=== PATIENT | male | born 1975 | race American Indian/Alaskan Native ===

== ENCOUNTER 2021-09-01 11:13 | Emergency (ER) | payer SELFPAY ==
[2021-09-01 11:44] VITALS: BP 100/60
--- NOTE | 2021-09-01 11:48 | Emergency Department Report ---
Chief Complaint: Abdominal Pain Stated Complaint: ABDOMINAL PAIN Time Seen by Provider: 09/01/21 11:46 - HPI History of Present Illness: felt bad last night so called off work job told him he needs work note so he comes to ER - ROS Review of Systems: no complaints - Exam Vital Signs: Vital Signs 09/01/21 11:42 Temperature 98.3 F Pulse Rate 107 H Respiratory 16 Rate Blood Pressure 100/60 [Left] O2 Sat by Pulse 100 Oximetry HR 90 on exam no fever no chills Physical Exam: alert oriented s1s2 lungs cta abd snt nad MSE screening note: Focused history and physical exam performed. Due to findings the following was ordered: Here for work note ED Disposition for MSE Clinical Impression: Abdominal pain Disposition: 01 HOME / SELF CARE / HOMELESS Is pt being admited?: No Does the pt Need Aspirin: No Condition: Stable Referrals: WEN SRIVASTAVA MD [Staff Physician] - 3-5 Days Forms: Work/School Release Form(ED) Time of Disposition: 11:47
== END 2021-09-01 16:20 | disposition home or self-care (01) ==
LOC: EDBD → ED 11:13
DX: R10.9 Unspecified abdominal pain (principal)
CPT/HCPCS: 99282

== ENCOUNTER 2022-02-03 13:07 | Emergency (ER) | payer SELFPAY ==
[2022-02-03 14:07] VITALS: BP 99/69
--- NOTE | 2022-02-03 16:24 | Emergency Department Report ---
ED Abdominal Pain HPI - General Chief Complaint: Abdominal Pain Stated Complaint: STOMACH PAIN Time Seen by Provider: 02/03/22 15:03 Source: patient Mode of arrival: Ambulatory Limitations: No Limitations - History of Present Illness Initial Comments: 46-year-old male with no significant past medical history reports to the ER with complaints of abdominal cramping with nausea intermittent vomiting and intermittent diarrhea for about 1 week. Patient reports that the nausea diarrhea has improved as well as the vomiting. Patient still reports he is watson ving abdominal cramping. Patient reports no other acute symptoms at this time. Patient denies any suspicious food intake as well as no exposure to any sick contacts or with people with similar symptoms. Patient reports taking nothing for his symptoms. Patient reports not having any prior episodes. Patient reports the cramping to be dull about 5 out of 10 pain. - Related Data Allergies Allergy/AdvReac Type Severity Reaction Status Date / Time No Known Allergies Allergy Verified 09/01/21 11:39 ED Review of Systems ROS: Stated complaint: STOMACH PAIN Other details as noted in HPI Comment: All other systems reviewed and negative Gastrointestinal: abdominal pain, nausea, vomiting, diarrhea. denies: hematemesis, melena, hematochezia ED Past Medical Hx - Past Medical History Previous Medical History?: No ED Physical Exam - General Limitations: No Limitations General appearance: alert, in no apparent distress - Head Head exam: Present: normocephalic - Eye Eye exam: Absent: conjunctival injection - Respiratory Respiratory exam: Absent: respiratory distress - Cardiovascular Cardiovascular Exam: Present: regular rate - GI/Abdominal GI/Abdominal exam: Absent: distended - Neurological Exam Neurological exam: Present: alert, altered, oriented X3, normal gait - Skin Skin exam: Present: warm, dry, intact ED Course Vital Signs 02/03/22 14:05 Temperature 97.6 F Pulse Rate 83 Respiratory 18 Rate Blood Pressure 99/69 [Right] O2 Sat by Pulse 97 Oximetry ED Medical Decision Making - Medical Decision Making During initial assessment of this patient as this provider was collecting a background of the patient's reason for being in the ER as well as asking more questions about his abdominal symptoms. Patient reports that he is truly here for work excuse that we can backdate 1 week from today for his employment. Patient informed that we can give a work excuse starting from today as this is our first time seeing this patient in the ER. Patient then states "if I am unable to get a work excuse that is backdated for 1 week and I prefer not to be seen and I rather go home". Patient informed is he sure he does not want to be evaluated for his abdominal symptoms and patient states she has. Patient informed that he he will need to sign AMA form. Patient agrees to sign AMA form. Patient is hemodynamically stable based off current vital signs. Patient is no acute distress. Patient is breathing normally. Vital Signs 02/03/22 14:05 Temperature 97.6 F Pulse Rate 83 Respiratory 18 Rate Blood Pressure 99/69 [Right] O2 Sat by Pulse 97 Oximetry Critical care attestation.: If time is entered above; I have spent that time in minutes in the direct care of this critically ill patient, excluding procedure time. ED Disposition Clinical Impression: Abdominal cramping Disposition: LEFT AGAINST MEDICAL ADVICE Is pt being admited?: No Condition: Stable
== END 2022-02-03 16:25 | disposition left against medical advice (07) ==
LOC: ED 13:07
DX: R10.9 Unspecified abdominal pain (principal)
CPT/HCPCS: 99282